=== PATIENT | female | born 1950 | race Caucasian/White ===

== ENCOUNTER → 2016-07-23 | Outpatient (CLI) | payer OTHER | LOC: BMCIMAGING 14:58 | DX: Z12.31 Encounter for screening mammogram for malignant neoplasm of breast (principal) | CPT/HCPCS: G0202 ==

== ENCOUNTER → 2017-08-15 | Outpatient (CLI) | payer OTHER | LOC: BMCIMAGING 13:38 | PROVIDERS: ATTEND Internal Medicine | DX: D25.1 Intramural leiomyoma of uterus (principal); D25.2 Subserosal leiomyoma of uterus; N83.291 Other ovarian cyst, right side ==

== ENCOUNTER → 2017-09-15 | Outpatient (CLI) | payer OTHER | LOC: BMCIMAGING 15:45 | PROVIDERS: ATTEND Family Medicine | DX: S82.65XA Nondisplaced fracture of lateral malleolus of left fibula, initial encounter for closed fracture (principal); M25.872 Other specified joint disorders, left ankle and foot ==

== ENCOUNTER → 2017-10-13 | Outpatient (CLI) | payer OTHER | LOC: BMCIMAGING 14:00 | PROVIDERS: ATTEND Podiatrist Foot & Ankle Surgery | DX: S92.325D Nondisplaced fracture of second metatarsal bone, left foot, subsequent encounter for fracture with routine healing (principal); S82.832D Other fracture of upper and lower end of left fibula, subsequent encounter for closed fracture with routine healing ==

== ENCOUNTER → 2017-11-01 | Outpatient (CLI) | payer OTHER | LOC: BMCIMAGING 12:51 | PROVIDERS: ATTEND Podiatrist Foot & Ankle Surgery | DX: S82.65XD Nondisplaced fracture of lateral malleolus of left fibula, subsequent encounter for closed fracture with routine healing (principal); S92.325D Nondisplaced fracture of second metatarsal bone, left foot, subsequent encounter for fracture with routine healing; S92.345D Nondisplaced fracture of fourth metatarsal bone, left foot, subsequent encounter for fracture with routine healing ==

== ENCOUNTER → 2018-04-18 | Outpatient (CLI) | payer OTHER | LOC: BMCIMAGING 12:15 | PROVIDERS: ATTEND Family Medicine | DX: S42.032A Displaced fracture of lateral end of left clavicle, initial encounter for closed fracture (principal); S69.92XA Unspecified injury of left wrist, hand and finger(s), initial encounter ==

== ENCOUNTER → 2018-04-28 | Outpatient (CLI) | payer OTHER | LOC: BMCIMAGING 16:01 | PROVIDERS: ATTEND Physician Assistant | DX: S42.002D Fracture of unspecified part of left clavicle, subsequent encounter for fracture with routine healing (principal) ==

== ENCOUNTER → 2018-05-12 | Outpatient (CLI) | payer OTHER | LOC: BMCIMAGING 10:47 | PROVIDERS: ATTEND Physician Assistant | DX: S42.032D Displaced fracture of lateral end of left clavicle, subsequent encounter for fracture with routine healing (principal) ==

== ENCOUNTER 2018-05-23 15:20 | Observation (INO) | payer OTHER ==
[2018-05-23] MEDS: HYDROmorphONE/DILAUDID 2 MG/ML INJ IVP PRN ×6 (09:45→20:22)
[2018-05-23] MEDS ORDERED: ceFAZolin 2 GM/DEXTROSE 100 ML IV ONE (15:45)
[2018-05-23] MEDS ORDERED: LR 1,000 ML IV ONE (15:46)
[2018-05-23] MEDS ORDERED: BUPIVACAINE/EPI 0.5% 30 ML SDV ONE (16:17)
--- NOTE | 2018-05-23 16:26 | PDHPUP ---
History & Physical Update H&P update statement: This history and physical update is based on an assessment of the patient which was completed after admission or registration (within 24 hours), but prior to the surgery/procedure. H&P update: H&P reviewed & patient examined, no change in patient's condition since H&P completed
--- NOTE | 2018-05-23 16:41 | PDANEPAE ---
ANE History of Present Illness here for clavicle fracture ANE Past Medical History - Cardiovascular History Hx Hypertension: No Hx Arrhythmias: No Hx Chest Pain: No Hx Coronary Artery / Peripheral Vascular Disease: No Hx CHF / Valvular Disease: No Hx Palpitations: No - Pulmonary History Hx COPD: No Hx Asthma/Reactive Airway Disease: No Hx Recent Upper Respiratory Infection: No Hx Oxygen in Use at Home: No Hx Sleep Apnea: No - Neurologic History Hx Cerebrovascular Accident: No Hx Seizures: No Hx Dementia: No - Endocrine History Hx Diabetes: No - Renal History Hx Renal Disorders: No - Liver History Hx Hepatic Disorders: No - Neurological & Psychiatric Hx Neurological / Psychiatric History Comment: Insomnia, depression - Cancer History Hx Cancer: No - Congenital Disorder History Hx Congenital Disorders: No - GI History Hx Gastrointestinal Disorders: No - Surgical History Prior Surgeries: hysterectomy, knee surgery ANE Review of Systems Review of Systems: - Exercise capacity METS (RN): 4 METS ANE Patient History - Allergies Allergies/Adverse Reactions: ibuprofen Allergy (Mild, Verified 05/23/18 16:06) Other-Enter Comments Penicillins Allergy (Mild, Verified 05/23/18 16:06) Hives - Home Medications Home Medications: ALPRAZolam [Xanax] 0 mg PO 08/15/12 [Last Taken 1 Day Ago ~05/22/18] Zolpidem Tartrate [Ambien 5MG (RX)] 0 mg PO HS 08/15/12 [Last Taken Unknown] Sertraline HCl 05/23/18 [Last Taken 10/30/17] Simvastatin 20 mg HS 05/23/18 [Last Taken 1 Day Ago ~05/22/18] Vitamin D3 2,000 units 05/23/18 [Last Taken 1 Day Ago ~05/22/18] buPROPion SR [Wellbutrin 150mg SR (*)] BID 05/23/18 [Last Taken 1 Day Ago ~05/22] cycloSPORINE 0.05% [Restasis Opht Drops(*)] 1 drop Q12 05/23/18 [Last Taken ] traZODone [traZODONE 100MG (*)] 100 mg PO HS 05/23/18 [Last Taken 1 Day Ago ~] - NPO status NPO Since - Liquids (Date): 05/23/18 NPO Since - Liquids (Time): 13:00 NPO Since - Solids (Date): 05/23/18 NPO Since - Solids (Time): 09:00 - Smoking Hx Smoking Status: Former smoker - Family Anes Hx Family Hx Anesthesia Complications: NA ANE Labs/Vital Signs - Vital Signs Blood Pressure: 144/85 Heart Rate: 79 Respiratory Rate: 14 O2 Sat (%): 96 Height: 166.37 cm Weight: 62.596 kg
[2018-05-23] MEDS ORDERED: oxyCODONE IR 5 MG TAB PO PRN (16:47)
[2018-05-23] MEDS ORDERED: MIDAZOLAM 2 MG/2 ML VIAL IVP ONE (16:47)
[2018-05-23] MEDS ORDERED: NALOXONE HCL 0.4 MG/ML INJ IVP PRN (16:47)
[2018-05-23] MEDS ORDERED: LR 500 ML IV PRN (16:47)
[2018-05-23] MEDS ORDERED: NS 500 ML IV PRN (16:47)
[2018-05-23] MEDS ORDERED: PROMETHAZINE HCL 25 MG/ML INJ IVP PRN ×2 (16:47→19:40)
[2018-05-23] MEDS ORDERED: HYDROCODONE/APAP 5/325 TAB PO PRN (16:47)
[2018-05-23] MEDS ORDERED: ONDANSETRON 4 MG/2 ML VIAL IVP PRN ×2 (16:47→19:40)
[2018-05-23] MEDS ORDERED: MIDAZOLAM 2 MG/2 ML VIAL ONE (16:48)
[2018-05-23] MEDS ORDERED: PROPOFOL/EMULSION 500 MG/50 ML BOTTLE IV ONE (16:53)
[2018-05-23] MEDS ORDERED: fentaNYL 250 MCG/5 ML INJ ONE (16:53)
[2018-05-23] MEDS ORDERED: DEXAMETHASONE 4 MG/ML VIAL ONE (17:18)
[2018-05-23] MEDS ORDERED: ONDANSETRON 4 MG/2 ML VIAL ONE (17:19)
[2018-05-23] MEDS ORDERED: HYDROmorphONE/DILAUDID 2 MG/ML INJ ONE (19:33)
--- NOTE | 2018-05-23 19:34 | POSTANESTH ---
Post Anesthetic Evaluation Cardiovascular Status: Normal, Stable Respiratory Status: Normal, Stable Level of Consciousness/Mental Status: Can Participate in Eval Pain Control: Adequate, Prn Tx Ordered Nausea/Vomiting Control: Adequate, Prn Tx Ordered Complications Possibly Related to Anesthesia: None Noted
[2018-05-23] MEDS ORDERED: diphenhydrAMINE 25 MG CAP PO PRN (19:40)
[2018-05-23] MEDS ORDERED: ONDANSETRON DISINTEGRATING 4 MG TAB PO PRN (19:40)
[2018-05-23] MEDS ORDERED: traZODone 100 MG TAB PO PRN (19:48)
[2018-05-23] MEDS ORDERED: ZOLPIDEM TARTRATE 5 MG TAB PO PRN (19:48)
[2018-05-23] MEDS ORDERED: fentaNYL 100 MCG/2 ML INJ ONE (20:10)
[2018-05-23] MEDS: fentaNYL 100 MCG/2 ML INJ IVP PRN ×2 (20:17→20:23)
[2018-05-23] MEDS: cycloSPORINE 0.05% 30 DROPERETTE/BOX EACHEYE SCH (22:51)
[2018-05-24] MEDS: ACETAMINOPHEN 325 MG TAB PO SCH ×2 (00:01→05:48)
[2018-05-24] MEDS: oxyCODONE IR 5 MG TAB PO PRN ×4 (00:01→10:39)
[2018-05-24] MEDS: ceFAZolin 2 GM/DEXTROSE 100 ML IV SCH ×2 (01:01→08:13)
--- NOTE | 2018-05-24 07:49 | GOP ---
DATE OF OPERATION: SURGEON: Roger Wallis MD ANESTHESIA: General. PREOPERATIVE DIAGNOSIS: Left distal clavicle fracture. POSTOPERATIVE DIAGNOSIS: Left distal clavicle fracture. PROCEDURE PERFORMED: Open reduction and internal fixation of a left distal clavicle fracture. FINDINGS: ESTIMATED BLOOD LOSS: 20 cc. INDICATIONS: This is a 67-year-old female who sustained a fracture of her left clavicle in [facility]. She was initially treated nonoperatively. She did not desire to perform a surgery at the time. O vicenta time, x-rays showed worsening superior displacement of the medial shaft at the left x-ray. The fr acture was very displaced, and it was tenting the skin. This was causing her worsening pain and dysfu nction. With the amount of displacement, an ORIF was indicated. She was seen by Sil[facility] who consulted me, and we scheduled the patient for surgery. I met the patient today. We discuss ed the risks and benefits of surgery. The risks include pain, bleeding, infection, damage to surround ing structures, delayed union, nonunion, the need for further surgery, including implant removal, wea kness, stiffness, and wound healing complications. She understood these risks, and she wished to proc eed. DESCRIPTION OF PROCEDURE: The patient was seen in the preoperative holding area. She was given the o pportunity to ask any questions. All questions were answered. Consent was signed. The surgical site w as marked. She was then transferred to the operative suite, and great care was taken to transfer the patient from the [facility] to the operating room table. A time-out was called, including the surgical an d anesthesia teams, confirming the surgical site and the procedure to be performed. 2 g of Ancef was given prior to incision. She was very carefully placed in the beach-chair position after induction of anesthesia. In the beach-chair position, great care was taken to ensure that all bony prominences we re padded, that her head was well padded, that eyes were well padded, and her head was w ell secured. She was then prepped and draped in the usual sterile fashion for a clavicle ORIF. I tito ed out my incision. She had a fragment that was tenting the skin. I marked the skin incision over the AC joint. I first dissected down through the skin. I visualized the medial shaft to the left periost eum and then the deltotrapezial fascia in 1 large layer. I then exposed that lateral spik e and lifted it off. There was abundant scar tissue. This was over a month old. I excised a lot of th e scar with electrocautery and a rongeur, and then the inferior surface of the clavicle, I took off t he scar with a rongeur until there was healthy bleeding bone. I then elevated the periosteum and part of the AC joint capsule flaps, and I visualize this lateral fragment. This was a very sm all fragment. It was quite . I then again excised the scar and then until I reached bleedi ng bone. There was healthy bleeding bone. I mobilized this fragment. I mobilized the other fragment. I then performed provisional reduction. I then chose the plate and placed the plate over the bone, an d then I the plate with the fragment fracture reduced. I used the ball-tipped K-wires to hold the plate down to the bone on both sides, and then I used 2 other K-wires in the lateral fragmen t to hold it in place. I then placed a screw medially into the shaft to hold it down posi tion. I then drilled for the coracoid button. I did this under fluoroscopic guidance, drilled through the 2 cortices of the clavicle and then through to the course of the coracoid base. Then, I passed t he button on the drying tunnel operator through the clavicle and the coracoid base and pulled up on the drying tunnel operator to flip the button. Once the button flipped, I then tightened down the button to the fit in to the plate hole, and I tightened down to further help reduce. The purpose of this was also to repai r the CC ligaments. After this was done, I then placed another cortical screw to the shaft, and then I placed the locking screws into the lateral fragment, and then I placed 1 more locking screw at the end of the plate. I then irrigated copiously with sterile saline. I placed the final x-rays. I was ve ry happy with the final x-rays. Then, I placed 1 cc of bone graft putty into the fracture site. Then, I closed the deltotrapezial fascia, the capsule, and the periosteum with an 0-Vicryl, and then a 3-0 Monocryl and then a 4-0 Monocryl running subcuticular stitch were used. Steri-Strips were applied. S terile dressing was applied. The patient was placed in a sling, awakened from general anesthesia in s table condition, and taken to the PACU in stable condition. IMPLANTS USED: Arthrex distal clavicle plating system, 5-hole shaft, with the Knotless Distal Clavic le Button TightRope. POSTOPERATIVE CONDITION: Stable. POSTOPERATIVE PLAN: The patient will follow up in the clinic in 10 to 14 days. We will follow radiog raphically for healing. /[id number]/MODL
[2018-05-24 07:56] VITALS: BP 141/72
[2018-05-24] MEDS: cycloSPORINE 0.05% 30 DROPERETTE/BOX EACHEYE SCH (08:16)
[2018-05-24] MEDS ORDERED: buPROPion SR 150 MG TAB PO SCH (09:00)
[2018-05-24] MEDS ORDERED: FAMOTIDINE 20 MG TAB PO SCH (09:00)
[2018-05-24] MEDS ORDERED: SERTRALINE HCL 50 MG TAB PO SCH ×2 (09:00→21:00)
--- NOTE | 2018-05-24 11:13 | ASMTLACE ---
KRAIG Length of stay for Answers: 2 days current admission Acuity / Level of Answers: No Care: Did the patient have an inpatient admission? # of Emergency department Answers: 0 visits in the last 6 months Social determinants Answers: Mental health diagnosis (anxiety, depression, pers onality disorders, etc.) Score: 5 Date Signed: 05/24/2018 11:12 AM Electronically Signed By:KAYDEN Mcguire
--- NOTE | 2018-05-24 16:24 | GPROG ---
DATE OF SERVICE: 05/23/2018 SUBJECTIVE: Patient feels well this morning. The anesthetic wore off last night and she is having s ome increased pain. However, this is controlled with p.o. pain medication. OBJECTIVE: VITALS: Stable. EXTREMITIES: Left shoulder, the dressing is clean, dry, and intact. S he is neurovascularly intact left upper extremity involving elbow, hand, wrist, and fingers. ASSESSMENT AND PLAN: Postoperative day #1 status post left clavicle open reduction internal fixation , admitted for pain control and observation. She is doing well today and is stable for discharge dorothy looney /[id number]/MODL
--- NOTE | 2018-05-24 19:05 | GDS ---
OPERATIONS AND PROCEDURES PERFORMED DURING HOSPITAL STAY: Left clavicle ORIF. HOSPITAL COURSE: The patient is a 67-year-old female who was admitted postoperatively for pain contr ol and observation after an uncomplicated left clavicle ORIF. Her postoperative course was without a ny complications. I saw her on the morning of May 23. At that time, some of the anesthetic had worn off and she was complaining of some pain. However, it was controlled with p.o. pain medication. She was tolerating p.o. Her vitals were stable and she was thus deemed stable for discharge home. On May 23, she went home. DISCHARGE DIAGNOSIS: Left clavicle fracture, status post open reduction internal fixation. POST DISCHARGE PLAN: The patient will follow up with myself or Dr. Silvia Engle in 10 to 14 days. /[id number]/MODL
[2018-05-24] MEDS ORDERED: ATORVASTATIN CALCIUM 10 MG TAB PO SCH (21:00)
== END 2018-05-24 12:01 | disposition home or self-care (01) ==
LOC: FSGY 15:20 → F3N 19:40
PROVIDERS: ADMIT Orthopaedic Surgery Hand Surgery; ATTEND Orthopaedic Surgery Hand Surgery
PROC: 0PSB04Z Reposition Left Clavicle with Internal Fixation Device, Open Approach (ICD-10-PCS; principal; 2018-05-23 16:30)
PROC: BP15ZZZ Fluoroscopy of Left Clavicle (ICD-10-PCS; principal; 2018-05-23 16:30)
DX: S42.032A Displaced fracture of lateral end of left clavicle, initial encounter for closed fracture (principal); G89.18 Other acute postprocedural pain; Z87.891 Personal history of nicotine dependence; Z88.0 Allergy status to penicillin
CPT/HCPCS: 23515; 97161; 97165; C1713; J0690; J1100; J1170; J2250; J2405; J2704; J3010

== ENCOUNTER → 2018-06-06 | Outpatient (CLI) | payer OTHER | LOC: BMCIMAGING 13:25 | PROVIDERS: ATTEND Physician Assistant | DX: S42.032D Displaced fracture of lateral end of left clavicle, subsequent encounter for fracture with routine healing (principal) ==

== ENCOUNTER → 2018-07-04 | Outpatient (CLI) | payer OTHER | LOC: BMCIMAGING 14:19 | PROVIDERS: ATTEND Orthopaedic Surgery Hand Surgery | DX: S42.032D Displaced fracture of lateral end of left clavicle, subsequent encounter for fracture with routine healing (principal) ==

== ENCOUNTER → 2018-07-28 | Outpatient (CLI) | payer OTHER | LOC: BMCIMAGING 14:04 | PROVIDERS: ATTEND Orthopaedic Surgery Hand Surgery | DX: S42.032D Displaced fracture of lateral end of left clavicle, subsequent encounter for fracture with routine healing (principal) ==

== ENCOUNTER 2018-08-22 09:54 | Inpatient (IN) | payer OTHER ==
[2018-08-22] MEDS ORDERED: BUPIVACAINE/EPI 0.5% 30 ML SDV ONE ×2 (13:43→14:57)
[2018-08-22] MEDS ORDERED: VANCOMYCIN 1 GM VIAL ONE ×2 (13:43→15:18)
[2018-08-22] MEDS ORDERED: ceFAZolin 2 GM/DEXTROSE 100 ML IV ONE (13:47)
[2018-08-22] MEDS ORDERED: LR 1,000 ML IV ONE (14:09)
--- NOTE | 2018-08-22 14:23 | POSTANESTH ---
Post Anesthetic Evaluation Cardiovascular Status: Normal, Stable Respiratory Status: Normal, Stable Level of Consciousness/Mental Status: Can Participate in Eval, Mildly Sleepy, Arousable Pain Control: Adequate, Prn Tx Ordered Nausea/Vomiting Control: Adequate, Prn Tx Ordered Complications Possibly Related to Anesthesia: None Noted
--- NOTE | 2018-08-22 14:36 | PDANEPAE ---
ANE History of Present Illness 67 yo female with retained L clavicle hardware for removal/revision of ORIF. ANE Past Medical History - Cardiovascular History Hx Hypertension: No Hx Arrhythmias: No Hx Chest Pain: No Hx Coronary Artery / Peripheral Vascular Disease: No Hx CHF / Valvular Disease: No Hx Palpitations: No Cardiovascular History Comment: Hyperlipidemia. - Pulmonary History Hx COPD: No Hx Asthma/Reactive Airway Disease: No Hx Recent Upper Respiratory Infection: No Hx Oxygen in Use at Home: No Hx Sleep Apnea: No Sleep Apnea Screening Result - Last Documented: Negative - Neurologic History Hx Cerebrovascular Accident: No Hx Seizures: No Hx Dementia: No - Endocrine History Hx Diabetes: No Hypothyroid: No Hyperthyroid: No Obesity: no - Renal History Hx Renal Disorders: No - Liver History Hx Hepatic Disorders: No - Neurological & Psychiatric Hx Neurological / Psychiatric History Comment: Anxiety d/o with panic attack. Insomnia. Depression. Recovered ETOH since 1980 - Cancer History Hx Cancer: No - Congenital Disorder History Hx Congenital Disorders: No - GI History Hx Gastrointestinal Disorders: No - Other Health History Other Health History: R ovarian mass, benign. L ankle and foot fx, no surgery. Osteopenia. Uterine fibroids - Chronic Pain History Chronic Pain: Yes - Surgical History Prior Surgeries: L clavicle ORIF 05/23/18. Lap BSO compliated by post-op infection with woulnd vac 11/29/2017. Facelift 08/2016. Colposcopy x2, 2007. R knee MCL repair 2007. Bilateral tubal ligation 1986. Breast augmentation 1984 ANE Review of Systems Review of Systems: - Exercise capacity METS (RN): 4 METS - Systems Constitutional: Reports: no symptoms EENMT: Reports: no symptoms Cardiac: Reports: no symptoms Respiratory: Reports: cough (dry cough for 2 days, ending about 4 days ago) ANE Patient History - Allergies Allergies/Adverse Reactions: ibuprofen Allergy (Mild, Verified 05/23/18 16:06) Other-Enter Comments Penicillins Allergy (Mild, Verified 05/23/18 16:06) Hives - Home Medications Home Medications: Sertraline HCl [Zoloft 50mg (*)] 50 mg PO HS 05/23/18 [Last Taken 08/15/18] Simvastatin [Zocor] 20 mg PO HS #0 05/23/18 [Last Taken 08/15/18] buPROPion SR [Wellbutrin 150mg SR (*)] 150 mg PO BID 05/23/18 [Last Taken ] cycloSPORINE 0.05% [Restasis Opht Drops(*)] 1 drop EACHEYE Q12 05/23/18 [Last Taken 08/22/18] traZODone [traZODone 150MG (*)] 150 mg PO HS 05/23/18 [Last Taken 08/21/18] Acetamn/Diphenhydramine 500/25 [Tylenol PM (*)] 1 each PO HS 08/10/18 [Last Taken Unknown] Cholecalciferol Vit D3 [Vitamin D3 (*)] 1,000 units PO DAILY 08/10/18 [Last Taken Unknown] Herbals/Supplements -Info Only 1 ea PO DAILY 08/10/18 [Last Taken 08/15/18] Hydrocodone/APAP 5/325 [Whiting 5/325 (*)] 1 tab PO DAILY PRN 08/10/18 [Last Taken 08/20/18] - NPO status NPO Since - Liquids (Date): 08/22/18 NPO Since - Liquids (Time): 11:00 NPO Since - Solids (Date): 08/21/18 NPO Since - Solids (Time): 23:00 - Anes Hx Anes Hx: no prior problems - Smoking Hx Smoking Status: Former smoker Marijuana use: No - Alcohol Use Alcohol Use: Rarely - Family Anes Hx Family Anes Hx: neg - N/A Family Hx Anesthesia Complications: None. ANE Labs/Vital Signs - Vital Signs Blood Pressure: 151/88 Heart Rate: 73 Respiratory Rate: 16 O2 Sat (%): 96 Height: 167.64 cm Weight: 63.503 kg ANE Physical Exam - Airway Neck exam: FROM Mallampati Score: Class 2 Mouth exam: normal dental/mouth exam - Pulmonary Pulmonary: clear to auscultation - Cardiovascular Cardiovascular: regular rate and rhythym - ASA Status ASA Status: III ANE Anesthesia Plan Anesthesia Plan: GA w LMA Regional Anesthesia: interscalene BP NB
[2018-08-22] MEDS ORDERED: fentaNYL 100 MCG/2 ML INJ ONE ×3 (14:39→19:34)
[2018-08-22] MEDS ORDERED: ROPIVACAINE HCL 150 MG/30 ML INJ ONE (14:44)
[2018-08-22] MEDS ORDERED: LIDOCAINE 2% 2 ML INJ ONE (14:58)
[2018-08-22] MEDS ORDERED: PROPOFOL/EMULSION 500 MG/50 ML BOTTLE IV ONE ×2 (14:58→16:48)
[2018-08-22] MEDS ORDERED: DEXAMETHASONE 4 MG/ML VIAL ONE (14:58)
[2018-08-22] MEDS ORDERED: VANCOMYCIN 500 MG/10 ML VIAL IV ONE (15:43)
[2018-08-22] MEDS ORDERED: ONDANSETRON 4 MG/2 ML VIAL ONE (18:23)
[2018-08-22] MEDS ORDERED: ALBUTEROL 3 ML DEYVIAL IH PRN (18:26)
[2018-08-22] MEDS ORDERED: oxyCODONE IR 5 MG TAB PO PRN (18:26)
[2018-08-22] MEDS ORDERED: fentaNYL 100 MCG/2 ML INJ IVP PRN (18:26)
[2018-08-22] MEDS ORDERED: LR 500 ML IV PRN (18:26)
[2018-08-22] MEDS ORDERED: PROMETHAZINE HCL 25 MG/ML INJ IVP PRN ×2 (18:26→19:04)
[2018-08-22] MEDS ORDERED: ACETAMINOPHEN 500 MG TAB PO PRN (18:26)
[2018-08-22] MEDS ORDERED: NALOXONE HCL 0.4 MG/ML INJ IVP PRN (18:26)
[2018-08-22] MEDS ORDERED: DIAZEPAM 10 MG/2 ML SYR IVP PRN (18:26)
[2018-08-22] MEDS ORDERED: HYDROmorphONE/DILAUDID 1 MG/ML INJ IVP PRN ×2 (18:26→19:04)
[2018-08-22] MEDS ORDERED: ONDANSETRON 4 MG/2 ML VIAL IVP PRN (19:04)
[2018-08-22] MEDS ORDERED: ONDANSETRON DISINTEGRATING 4 MG TAB PO PRN (19:04)
[2018-08-22] MEDS ORDERED: NS 1,000 ML IV SCH (19:15)
[2018-08-22] MEDS ORDERED: LR 1,000 ML IV SCH (19:30)
[2018-08-22] MEDS: SERTRALINE HCL 50 MG TAB PO SCH (20:32)
[2018-08-22] MEDS: oxyCODONE IR 5 MG TAB PO PRN (20:32)
[2018-08-22] MEDS: buPROPion SR 150 MG TAB PO SCH (20:33)
[2018-08-22] MEDS: cycloSPORINE 0.05% 30 DROPERETTE/BOX EACHEYE SCH (23:13)
[2018-08-22] MEDS: ACETAMINOPHEN 500 MG TAB PO SCH (23:15)
[2018-08-23] MEDS: oxyCODONE IR 5 MG TAB PO PRN ×5 (00:57→17:27)
[2018-08-23] MEDS: ACETAMINOPHEN 500 MG TAB PO SCH ×2 (05:08→13:16)
[2018-08-23] MEDS: oxyCODONE IR 15 MG TAB PO PRN ×2 (06:15→21:32)
--- NOTE | 2018-08-23 07:44 | SOAPPROG ---
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 Still having some pain. Cannot lift the arm. Resizer Operator returning Objective: Vital Signs Temp Pulse Resp BP Pulse Ox 36.9 C 67 17 120/65 94 08/23/18 07:11 08/23/18 07:11 08/23/18 07:11 08/23/18 07:11 08/23/18 07:11 Microbiology 08/22/18 17:34 Gram Stain - Final Chest - Bone 08/22/18 16:18 Gram Stain - Final Chest - Tissue 08/22/18 16:10 Gram Stain - Final Chest - Eswab 08/22/18 16:10 Gram Stain - Final Chest - Eswab Laboratory Results 08/23/18 04:27 08/22/18 08/23/18 08/24/18 05:59 05:59 05:59 Intake Total 1445 Output Total 350 Balance 1095 LUE -dressing c/d/i -intact stone driller, wrist flexion/extension -SILT in hand - Time Spent With Patient Time Spent With Patient: 15 m ICD10 Worksheet Patient Problems: Problems Problem Status Onset Nonunion of clavicle fracture Acute - ICD10 Problem Qualifiers (1) Nonunion of clavicle fracture Qualifiers: Clavicle location: lateral end Fracture type: closed Fracture alignment: displaced Laterality: left Qualified Code(s): S42.032K - Displaced fracture of lateral end of left clavicle, subsequent encounter for fracture with nonunion
[2018-08-23] MEDS: CHOLECALCIFEROL VIT D3 1,000 UNITS TAB PO SCH (09:08)
[2018-08-23] MEDS: buPROPion SR 150 MG TAB PO SCH ×3 (09:08→23:21)
[2018-08-23] MEDS: cycloSPORINE 0.05% 30 DROPERETTE/BOX EACHEYE SCH (09:10)
--- NOTE | 2018-08-23 10:19 | PDMN ---
Medical Necessity Medical necessity: Pt meets IP criteria per MD & MCG SG-MS Musculoskeletal Surgery or Procedure; est los >2 mn s/p L clavicle hardware removal, debridement & revision ORIF for presumed infected nonunion; requiring IV abx, ID consult, pain management & therapies; per progress note & order 08/22/18
--- NOTE | 2018-08-23 11:54 | ASMTCMCOM ---
CM Note CM Note Notes: Pt had clavicle revision, debridement and hardware removal. Pt resides alone. OT rec home, PT rec home/outpatient. ID to consult and cultures pending. Pt currently on IV ceftriaxone. CM to follow. D/c plan: Dependent on ID recs Date Signed: 08/23/2018 11:54 AM Electronically Signed By:KAYDEN Mcguire
[2018-08-23] MEDS ORDERED: ALTEPLASE 2 MG VIAL IVP PRN (13:51)
--- NOTE | 2018-08-23 17:00 | ASMTCMCOM ---
CM Note CM Note Notes: Pt will need to d/c on IV antibiotics, referral sent to [facility] they ran benefits for 2gm ceftriaxone daily. Pt responsibility is approx $517/week for six weeks. Pt reports she does not have daily transportation to get to an infusion center. Pt is upset the bello for home IV antibiotics is so costly and reports she likely will pay for it because she is in so much pain and wants to/needs to be home. Pt is provided senior blue book for transportation resources, she reports they are all "a hassle." Pt states she gets to medical appointments now with rides from friends and does not have anyone to help on a daily basis. Cristine with [facility] will visit with pt tomorrow and pt looks forward to more information from [facility] about insurance coverage. Pt is provided a print out of the expected cost for home IV antibiotics. Pt is dealing with chronic pain and verbalizes being frustrated/stressed with months of ongoing medical issues. Pt reports she has a limited support system. Pt interested in [employer] Whe[employer] referral. CM to follow. D/c plan of care: Home IV antibiotics most likely Date Signed: 08/23/2018 04:59 PM Electronically Signed By:KAYDEN Mcguire
--- NOTE | 2018-08-23 17:41 | PDIAF ---
- Diagnosis Diagnosis: Osteomyelitis left clavicle Code Status: Full Code - Medication Management Optical Scientist Antibiotics: Ceftriaxone 2 g IV daily Optical Scientist Antibiotic Stop Date: 10/04/18 Discharge Medications: electronically signed and located in the Home Medication List. PICC Care - Routine: Yes - Orders Services needed: Home Care, Registered Nurse Home Care Face to Face: I certify that this patient was under my care and that I had the required [id number] encounter meeting the encounter requirements on the discharge day. My findings support the fact that the patient is homebound as defined in Home Care Face to Face Continued: CMS Chapter 7 Medicare Benefits Manual 30.1.1 , The condition of the patient is such that there exists a normal inability to leave home and consequently, leaving home would require a considerable and taxing effort. - Labs/Radiology CBC w/diff Date: 08/28/18 (Weekly Tuesday) CMP Date: 08/28/18 (Weekly Tuesday) CRP Date: 08/28/18 (Weekly Tuesday) Call or Fax Lab and Imaging Results to: Andressa Gaines MD [facility] at fax [phone] - Follow Up Care Current Providers and Referrals: Elizabeth Otto MD [Primary Care Provider] - Andressa Gaines MD [Medical Doctor] - follow up in 10 days
--- NOTE | 2018-08-23 18:08 | GCON ---
[f rep st] CONSULTATION INFECTIOUS DISEASE CONSULTATION. DATE OF CONSULTATION: 08/23/2018 REQUESTING PHYSICIAN: Roger Wallis REASON FOR CONSULTATION: Osteomyelitis of the left clavicle. HISTORY OF PRESENT ILLNESS: This is a 67-year-old woman whose current problems date back to the 23 of May when she fractured her left clavicle after a fall in the garage, which required open redu ction, internal fixation. She had persistent pain and limited range of motion of her left shoulder a nd imaging demonstrated no fusion and corresponding labs showed a slightly elevated CRP, therefore th ere was concern for infection. The patient returned to the OR 08/22/2018, in which cloudy fluid was identified intraoperatively, debrided, hardware was replaced and cultures were taken. ID is asked to consult for ongoing antibiotic management. Leading up to the surgery approximately 2 weeks, patient described malaise, lethargy, and some fever, chills the last 2 weeks. She has not been on antibioti cs recently. PAST MEDICAL HISTORY: She had a hysterectomy in November of 2017, complicated by a wound infection req uiring wound VAC. She underwent a hysterectomy for a cyst to rule out cancer. Also, she has a histo ry of depression and a fractured ankle. ALLERGIES: Penicillin was removed as an allergy as it occurred in 6th grade and had a nonsignificant rash. SOCIAL HISTORY: Patient does drink alcohol. Quit tobacco 20 years ago. 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 Moved to [place] in 1966 from [place] to attend college. She lives alone and has minimal ability for transportation. FAMILY HISTORY: Positive for kidney disease. Her brother has had a renal transplant. MEDICATIONS: Wellbutrin 150 twice daily, ceftriaxone 2 g IV daily, vitamin D, Zoloft 50 mg at bedtim e, and trazodone 150 mg p.o. at bedtime. REVIEW OF SYSTEMS: A complete 10-point review of systems was performed and is negative except as men tioned in the HPI. PHYSICAL EXAM: VITAL SIGNS: BP 148/86, HR 74, RR 17, saturation 97% on room air, temperature 36.9. She has been afebrile throughout her hospital course. GENERAL: This is a mildly distressed but non toxic woman sitting up in bed. Distress is due to pain of her left clavicle. HEENT: No conjunctiva l lesions. Oropharynx: Good dentition. Moist mucous membranes. NECK: Supple. CARDIOVASCULAR: S he had some irregularity. No murmur. CHEST: Clear to auscultation bilaterally. ABDOMEN: Soft, no ntender. Bowel sounds are present. She had a dressing in place over her left chest wall and shoulde r. NEUROLOGICAL: She was alert and oriented x4. Moving all 4 extremities equally. LABORATORY: White count 7.1, hematocrit 35, platelets of 185, CRP 24. No pertinent imaging. 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 Cultures are pending. Suspect the acne. Will start IV ceftriaxon e 2 g IV daily. Reviewed the risks and benefits of IV antibiotics with the patient at bedside, as we ll as PICC line placement. Patient will work on with case management the modality of administration of IV antibiotics at home. Reviewed the risks and benefits of Ceftriaxone at the bedside including C difficile. Thanks for this consultation. We will continue to see the patient on a daily basis. /[id number]/MODL
--- NOTE | 2018-08-23 19:53 | GOP ---
[f rep st] OPERATIVE REPORT DATE OF OPERATION: 08/22/2018 SURGEON: Roger Wallis MD NEUROPHYSIOLOGY TECH: SHARIF Stinson was the metal moulder's assistant for this case. A metal moulder's assistant was medically nec essary for retraction and the safe and successful completion of this case. ANESTHESIA: General and block. 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 PROCEDURE PERFORMED: FINDINGS: INDICATIONS: The patient is a 67-year-old female, well known to me. She underwent ORIF of her dista l clavicle fracture about 3 months ago by me. I had then seen her for followup in clinic. At her ms st followup, the patient was complaining of continued pain in the clavicle. She also noticed a recur ring red rash over the incision. X-rays showed no progression in healing and what looked like an est ablished nonunion. A CRP was drawn, which was elevated. All these factors point to an infected nonu nion as the very likely cause of the nonunion. I discussed this case with several colleagues who are trauma and shoulder specialists. With the evidence presented, they all still felt that removal of t he initial hardware and I and D was recommended. removal of hardware. We discussed DICTATION ENDS HERE DESCRIPTION OF PROCEDURE: OPERATIONS PERFORMED: 1. Left distal clavicle deep hardware removal. 2. Left clavicle irrigation and debridement for presumed infected nonunion of hardware bone nonunion site and any other remaining contaminated soft tissue. 3. Revision clavicle surgical fixation for nonunion. IMPLANTS USED: Synthes hook plate distal clavicle plate. /[id number]/MODL
[2018-08-23] MEDS: SERTRALINE HCL 50 MG TAB PO SCH (21:27)
[2018-08-24] MEDS: oxyCODONE IR 15 MG TAB PO PRN ×5 (02:10→20:01)
[2018-08-24 02:35] LABS: PLATELET COUNT 159 10^3/uL (150-400)
[2018-08-24] MEDS: ACETAMINOPHEN 500 MG TAB PO SCH ×4 (02:41→23:25)
--- NOTE | 2018-08-24 05:49 | GOP ---
[f rep st] OPERATIVE REPORT DATE OF OPERATION: 08/22/2018 SURGEON: Roger Wallis MD SUPERVISOR QUALITY CONTROL: Stephenie OLGUIN was the recycling assistant for this case. A recycling assistant was medically necessary for retraction and the safe and successful completion of this case. ANESTHESIA: General with a block. 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 PROCEDURE PERFORMED: 1. Left distal clavicle deep hardware removal. 2. Left clavicle irrigation and debridement for presumed infected nonunion of hardware with left clavicle irrigation and debridement of bone and any remaining contaminated soft tissue at presumed nonunion site. 3. Revision clavicle surgical fixation for nonunion. FINDINGS: ESTIMATED BLOOD LOSS: 50 cc. DESCRIPTION OF PROCEDURE: The patient was seen in the preop holding area. She was given opportunity to ask more questions. All her questions were answered. Consent was signed. Surgical site was marked. A block was performed by the anesthesia team. She was transferred to the operative suite. In the operative suite she was carefully transferred from the [facility] to the operating table. She was carefully placed in the beach chair position. Great care was taken to ensure that all bony prominences were well padded in the beach chair position, that her head were secured and well padded, that her eyes were well padded. The left upper extremity was prepped and draped in the usual sterile fashion. Antibiotics were withheld until cultures were then taken and then 2 g of Ancef were given. After prepping and draping the left upper extremity, I carefully made incision over prior incision extending it both distally and proximally. I raised thick skin flaps down to the level of the fascia more medially. I did identify a supraclavicular nerve which was preserved. I then identified the fascia that I had previously repaired over the plate and I incised the fascia. A cloudy appearing fluid drained out. I took a culture of this fluid and then continued dissecting around the plate. I saw some more contaminated appearing tissue and cultured this. I then elevated off the fascia over the entire plate. I visualized the button over the plate for the coracoid fixation and this button lifted off easily with the entire coracoid suture. It is unclear exactly how this suture loosened up, but it appeared to have loosened in its entirety. I then turned my attention to removing the coracoid button from the underside of the coracoid. I elevated off the deltotrapezial fascia off the anterior clavicle. I elevated off the deltoid from the anterior clavicle in a standard fashion for exposure of the coracoid. I exposed the superior surface of the coracoid, visualize the CA ligament. I then dissected to either side medial and laterally of the coracoid with blunt dissection at all times to protect any vital structures at all times. There was more scarring here than in a normal coracoid exposure from the prior surgery. It was done under fluoroscopic visualization. I was able to push the button from the medial aspect over to the lateral aspect with a malleable type protractor, again pushing it over bluntly being on the underside of the coracoid. I then carefully again bluntly dissected and visualized the button and removed the button. I took an x-ray to confirm that it was removed. I then irrigated copiously over the coracoid. I then turned my attention to the debridement and then begin aggressively debriding. I first debrided all the tissue over the clavicle with a rongeur and then sent some of the soft tissue for culture. I then began debriding the nonunion site. This was an established nonunion. It was mobile. I debrided all the fibrous tissue from the nonunion site. I sent some bone and sent it off for culture. I then freshened up the fracture ends with a rongeur. I carefully debrided all soft tissue from the nonunion site and from the bone. I then used a bur to bur the ends of the fracture until I had fresh bleeding bone. I than began irrigating copiously with sterile saline , several liters of this. I then also irrigated with dilute Betadine over the clavicle. I then washed this away with more sterile saline several L. I then turned my attention to the revision at this point. After completion of the irrigation and debridement, the dirty instruments were set aside. We changed to new gloves and clean instruments were used. Then, I chose a Synthes hook plate to bypass the left screw hole of the prior Arthrex plate that I had removed. This was long enough that it was more medial than the last screw hole. I used a deeper hook. I placed it under the acromion in the standard fashion. Prior to doing so, I placed a 2.7 lag screw through the fracture site after reducing it and this actually had some nice compression and held the reduction nicely and then I countersunk it so I that I could put the plate over the aforementioned hook plate over the fracture site and this compressed it nicely again, held the reduction. I then placed a cortical screw at the most medial screw to hold the plate down at that aspect as it was popping up slightly. I then placed another cortical screw into the shaft to pull the plate down to the bone. I then placed a locking screw medially and 2 more locking screws into the distal piece. I assessed the reduction. I was happy with it. I then irrigated a little bit more and then during this time Vancomycin impregnated calcium sulfate beads were prepared on the back table. These cement beads were then placed over the nonunion site and over the plate. I carefully then repaired the fascia over these beads. Prior to doing so, I repaired the deltoid insertion in the clavicle with 0 PDS to the plate in the anterior clavicle. Then, I repaired the fascia with an 0 PDS over the plate. I then closed the wound in layers, last layer with nylon. A sterile dressing was applied. She tolerated the procedure well and was taken to PACU in stable condition. IMPLANTS: Synthes hook plate for distal clavicle fracture. INDICATIONS FOR PROCEDURE: This patient is a 67-year-old female who is well known to me. She underwent ORIF of her distal clavicle fracture about 3 months ago by me. I had been seeing her for followup in clinic. On her last follow up the patient was complaining of continued pain in the clavicle that was significant. She noticed a recurring red rash over the incision. X-rays showed no progression in healing, showing established nonunion. A CRP was drawn which was elevated. All these factors are pointing to a very likely infected nonunion. I discussed the case with several colleagues who are trauma and shoulder specialist. With evidence presented, they all felt that removal hardware and I and D is recommended. I discussed with her the options for the next step. We did discuss that removing all hardware and treatment of the infection with later return may hold a slightly higher chance of success removing the infection. However, this would be at the cost of significant pain and dysfunction to leaving the fracture unfixed which was causing her a lot of pain to begin with when she presented to me. I offered her the option of performing this essentially in 1 stage with hardware removal and aggressive I and D and then placement of antibiotic beads and a new plate to hopefully eliminate the infection and allow for union of the fracture. After our discussion, she wished to proceed with a method that would stabilize the fracture to prevent pain and dysfunction. We discussed risks and benefits. Risks include pain, bleeding, infection, damage to surrounding structures, stiffness, weakness, wound healing complications, need for further surgery including removal of hardware and revision, delayed union, nonunion. She understood these risks and she wished to proceed. POSTOPERATIVE CONDITION: Stable. POSTOPERATIVE PLAN: The patient will be admitted to my service. I have already spoken to an ID physician about the patient who will see the patient in the hospital and then coordinate care including IV antibiotics. We will await culture results. She will also be admitted for pain control as this was an issue at her last surgery. /[id number]/MODL MTDD
--- NOTE | 2018-08-24 08:00 | PCMIDPN ---
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 Initial injury had "tinting" of the skin but was not open. Strongly suspect P acnes. Patient still with a high degree of pain. Labs show mild anemia and elevated CRP which can be expected with infection. --will continue to follow cultures --discharge okay from ID perspective will plan empiric ceftriaxone 2 g IV daily which will cover strep, P acnes --challenges regarding discharge for plans of IV antibiotics due to high cost of home iV and difficult w transport and like not candidate for SNF --interagency was completed # Irregular heart beat noted on exam yesterday: EKG normal meds Ceftriaxone 2gm IV daily Micro 08/22 OR cx: multiple cx with negative gram stain: Cx is pending Subjective: Patient states that she has significant pain at the surgical site still. This is improved since her pain medicines work increased last night. No GI symptoms or rash Objective: Vital Signs Temp Pulse Resp BP Pulse Ox 36.6 C 73 16 137/77 H 97 08/24/18 04:00 08/24/18 04:00 08/24/18 04:00 08/24/18 04:00 08/24/18 04:00 Microbiology 08/22/18 16:10 Gram Stain - Final Chest - Eswab 08/22/18 16:10 Gram Stain - Final Chest - Eswab 08/22/18 16:18 Gram Stain - Final Chest - Tissue 08/22/18 17:34 Gram Stain - Final Chest - Bone 08/22/18 16:18 Mycobacterial Smear (BRANDON) - Final Chest - Tissue 08/22/18 17:34 Mycobacterial Smear (BRANDON) - Final Chest - Bone Laboratory Results 08/24/18 08/24/18 02:25 08:20 WBC 7.24 Hct 31.0 L Plt Count 159 Creatinine 0.7 AST 12 L ALT 31 C-Reactive Protein 27.7 H 08/23/18 08/24/18 08/25/18 05:59 05:59 05:59 Intake Total 1445 1850 Output Total 350 300 Balance 1095 1550 - Physical Exam General Appearance: alert, no apparent distress Respiratory: lungs clear, No accessory muscle use Neck: supple Cardiac/Chest: regular rate, rhythm, No systolic murmur Extremities: other (Dressing in place left upper chest), No swelling Skin: No rash Neuro/Psych: alert, normal mood/affect, oriented x 3 - Line/s RUE PICC Lines: No drainage, No erythema - Time Spent With Patient Time Spent with Patient: greater than 35 minutes (Care coordinated with nursing and orthopedist) Time Spent with Patient: Greater than 35 minutes spent on this patients care, greater than 50% of time spent counseling, educating, and coordinating care regarding the above mentioned plan. ICD10 Worksheet Patient Problems: Problems Problem Status Onset Nonunion of clavicle fracture Acute
--- NOTE | 2018-08-24 08:28 | SOAPPROG ---
SOAP Progress Note Assessment/Plan: Assessment:POD#2 s/p L clavicle HWR, I&D, and revision ORIF for presumed infected nonunion -gram stain of fluid showing 2+ PMN's -block wore off, strength returned -the cost of the antibiotic treatment is a significant concern for her. She also has transportation issues. I will speak to the CM regarding options Plan: -IV Ceftriaxone per ID recs -appreciate ID consult -PICC line placed last night -d/c planning pending culture results, pain control -pain ctrl -PT/OT Subjective: Pain better controlled on 15mg Oxy Q4hr. PICC placed yesterday Objective: Vital Signs Temp Pulse Resp BP Pulse Ox 36.6 C 73 16 137/77 H 97 08/24/18 04:00 08/24/18 04:00 08/24/18 04:00 08/24/18 04:00 08/24/18 04:00 Microbiology 08/22/18 16:10 Gram Stain - Final Chest - Eswab 08/22/18 16:10 Gram Stain - Final Chest - Eswab 08/22/18 16:18 Gram Stain - Final Chest - Tissue 08/22/18 17:34 Gram Stain - Final Chest - Bone 08/22/18 16:18 Mycobacterial Smear (BRANDON) - Final Chest - Tissue 08/22/18 17:34 Mycobacterial Smear (BRANDON) - Final Chest - Bone Laboratory Results 08/24/18 02:25 08/23/18 08/24/18 08/25/18 05:59 05:59 05:59 Intake Total 1445 1850 Output Total 350 300 Balance 1095 1550 Cultures = no growth to date L shoulder -dressing changed, incision mostly dry apart from small area of clear drainage. 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 Moves all fingers. SILT - Time Spent With Patient Time Spent With Patient: 30 m ICD10 Worksheet Patient Problems: Problems Problem Status Onset Nonunion of clavicle fracture Acute - ICD10 Problem Qualifiers (1) Nonunion of clavicle fracture Qualifiers: Clavicle location: lateral end Fracture type: closed Fracture alignment: displaced Laterality: left Qualified Code(s): S42.032K - Displaced fracture of lateral end of left clavicle, subsequent encounter for fracture with nonunion
[2018-08-24] MEDS: CHOLECALCIFEROL VIT D3 1,000 UNITS TAB PO SCH (09:29)
[2018-08-24] MEDS: buPROPion SR 150 MG TAB PO SCH ×2 (09:29→20:01)
--- NOTE | 2018-08-24 10:27 | CPEKG ---
Test Reason : OPEN Blood Pressure : / mmHG Vent. Rate : 067 BPM Atrial Rate : 066 BPM P-R Int : 122 ms QRS Dur : 088 ms QT Int : 399 ms P-R-T Axes : 040 053 049 degrees QTc Int : 422 ms Sinus rhythm Abnormal R-wave progression, early transition Confirmed by Torin Torrez ([id number]) on 08/24/2018 10:27:18 AM Referred By: Roger Wallis Confirmed By:Torin Torrez
--- NOTE | 2018-08-24 17:00 | ASMTCMCOM ---
CM Note CM Note Notes: This morning pt believed to have home IV antibiotics it would cost her $11k. Cristine with [employer] sat bedside with pt and went over insurance, informing pt the cost is closer to $3K. Pt decides she wants to d/c home with [facility] and [facility] can accept for RN. Pt informed she is likely medically stabel to d/c tomorrow, pt initially states she has no transport home tomorrow but then states her friend Emani can pick her up when she gets off work at 1800. MD Wallis updated. D/c plan of care: Home with [facility] and [facility] RN Date Signed: 08/24/2018 04:59 PM Electronically Signed By:KAYDEN Mcguire
[2018-08-24] MEDS: SERTRALINE HCL 50 MG TAB PO SCH (20:01)
[2018-08-25] MEDS: oxyCODONE IR 15 MG TAB PO PRN ×5 (00:09→16:32)
[2018-08-25] MEDS: ACETAMINOPHEN 500 MG TAB PO SCH ×2 (06:31→16:33)
[2018-08-25] MEDS: buPROPion SR 150 MG TAB PO SCH (08:12)
[2018-08-25] MEDS: CHOLECALCIFEROL VIT D3 1,000 UNITS TAB PO SCH (08:12)
--- NOTE | 2018-08-25 13:38 | ASMTLACE ---
JERODE Length of stay for Answers: 4-6 days current admission Acuity / Level of Answers: Yes Care: Did the patient have an inpatient admission? Comorbidities - select Answers: Opioid dependence all that apply / Chronic pain Other Notes: HLD # of Emergency department Answers: 0 visits in the last 6 months Social determinants Answers: Mental health diagnosis (anxiety, depression, pers onality disorders, etc.) Score: 15 Date Signed: 08/25/2018 01:35 PM Electronically Signed By:KAYDEN Mcguire
--- NOTE | 2018-08-25 13:42 | ASMTCMCOM ---
CM Note CM Note Notes: Pt medically stable for d/c with [facility] RN and [facility]. Cristine with [facility] and Keri at [facility] were notified. [facility] and [facility] to obtain orders via [employer]. Pt has a friend to transport this evening. Voicemail left for [employer] to contact pt. Date Signed: 08/25/2018 01:39 PM Electronically Signed By:KAYDEN Mcguire
--- NOTE | 2018-08-25 15:01 | SOAPPROG ---
SOAP Progress Note Assessment/Plan: Assessment:POD#3 s/p L clavicle HWR, I&D, and revision ORIF for presumed infected nonunion -gram stain of fluid showing 2+ PMN's -home health RN and antibiotics arranged Plan: -IV Ceftriaxone per ID recs -appreciate ID consult -pain ctrl -PT/OT -plan d/c today Subjective: Doing well this afternoon. Pain ctrl'd with current regimen Objective: Vital Signs Temp Pulse Resp BP Pulse Ox 37.1 C 68 16 149/78 H 88 L 08/25/18 07:46 08/25/18 07:46 08/25/18 07:46 08/25/18 07:46 08/25/18 07:46 Microbiology 08/22/18 17:34 Gram Stain - Final Chest - Bone 08/22/18 16:18 Gram Stain - Final Chest - Tissue 08/22/18 16:10 Gram Stain - Final Chest - Eswab 08/22/18 16:10 Gram Stain - Final Chest - Eswab Laboratory Results 08/24/18 02:25 08/24/18 08:20 08/24/18 08/25/18 08/26/18 05:59 05:59 05:59 Intake Total 1850 1950 Output Total 300 400 Balance 1550 1550 LUE -dressing c/d/i -NV intact distally, 5/5 - Time Spent With Patient Time Spent With Patient: 20 m - Pending Discharge Pending Discharge Within 24 Hours: Yes Pending Discharge Date: 08/26/18 Pending Discharge Time: 11:00 ICD10 Worksheet Patient Problems: Problems Problem Status Onset Nonunion of clavicle fracture Acute - ICD10 Problem Qualifiers (1) Nonunion of clavicle fracture Qualifiers: Clavicle location: lateral end Fracture type: closed Fracture alignment: displaced Laterality: left Qualified Code(s): S42.032K - Displaced fracture of lateral end of left clavicle, subsequent encounter for fracture with nonunion
[2018-08-25 15:10] VITALS: BP 129/65
--- NOTE | 2018-08-25 20:20 | GDS ---
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 OPERATIONS PERFORMED DURING HOSPITALIZATION: Left clavicle hardware removal, incision and drainage, and revision open reduction and internal fixation. HOSPITAL COURSE: Cindy was admitted after her surgery, on TuesdayAugust 22. Her hospital course has been uneventful. She was admitted for IV pain control and workup by the ID Service for treatment of this infected nonunion. During her hospitalization, her vitals were stable. Her pain was controlle d with p.o. pain regimen by today's date. She worked with PT and OT. She received a PICC line, which was ordered by the ID Service. Dr. Gaines with ID was consulting, and developed a plan. Home healt h RN was arranged. She is to be discharged on daily IV ceftriaxone. Her cultures were negative to d ate during her hospitalization; however, all evidence points to a likely infected nonunion, and likel y infection in the shoulder may not grow cultures for at least 2 weeks. By , jie was deemed stable for discharge home. /[id number]/MODL
--- NOTE | 2018-08-26 10:10 | ASDISCHSUM ---
Discharge Information Plan Status:IV ABX/Infusion Medically Cleared to Leave: Discharge Date:08/25/2018 07:15 PM D/C Disposition: ADT D/C Disposition:Home, Routine, Self-Care Projected Discharge Date:08/25/2018 11:00 AM Transportation at D/C: Discharge Delay Reason: Follow-Up Date:08/25/2018 11:00 AM Discharge Slot: Final Diagnosis: Placement Information Referral Type:Home Infusion Referral ID:[id number] Provider Name:[facility] Address 1[address]: City:[place] Selection Factors: State:[place] Referral Type:*Home Health Care Services Referral ID:[id number] Provider Name:[facility] Address [address] 2: City:[place] Selection Factors: State:[place] Patient Contact Information Contact Name:Cesar Relationship:Son Address: Work Phone: City: [facility] Phone: [facility] Code: Email: Financial Information Financial Class:Medicare Primary Plan Desc:MEDICARE INPATIENT Primary Plan Number:[id number] Secondary Plan Desc:[facility] RO[facility] Secondary Plan Number:[id number] Assessment Information LACE LACE Length of stay for Answers: 4-6 days current admission Acuity / Level of Answers: Yes Care: Did the patient have an inpatient admission? Comorbidities - select Answers: Opioid dependence all that apply / Chronic pain Other Notes: HLD # of Emergency department Answers: 0 visits in the last 6 months Social determinants Answers: Mental health diagnosis (anxiety, depression, pers onality disorders, etc.) Score: 15 Date Signed: 08/25/2018 01:35 PM Electronically Signed By:KAYDEN Mcguire [facility] Progress Note CM Note CM Note Notes: Pt had clavicle revision, debridement and hardware removal. Pt resides alone. OT rec home, PT rec home/outpatient. ID to consult and cultures pending. Pt currently on IV ceftriaxone. CM to follow. D/c plan: Dependent on ID recs Date Signed: 08/23/2018 11:54 AM Electronically Signed By:KAYDEN Mcguire [facility] CM Progress Note CM Note CM Note Notes: Pt will need to d/c on IV antibiotics, referral sent to [facility] they ran benefits for 2gm ceftriaxone daily. Pt responsibility is approx $517/week for six weeks. Pt reports she does not have daily transportation to get to an infusion center. Pt is upset the bello for home IV antibiotics is so costly and reports she likely will pay for it because she is in so much pain and wants to/needs to be home. Pt is provided senior blue book for transportation resources, she reports they are all "a hassle." Pt states she gets to medical appointments now with rides from friends and does not have anyone to help on a daily basis. Cristine with [employer] will visit with pt tomorrow and pt looks forward to more information from [place] about insurance coverage. Pt is provided a print out of the expected cost for home IV antibiotics. Pt is dealing with chronic pain and verbalizes being frustrated/stressed with months of ongoing medical issues. Pt reports she has a limited support system. Pt interested in [employer] referral. CM to follow. D/c plan of care: Home IV antibiotics most likely Date Signed: 08/23/2018 04:59 PM Electronically Signed By:KAYDEN Mcguire [facility] CM Progress Note CM Note CM Note Notes: This morning pt believed to have home IV antibiotics it would cost her $11k. Cristine with [employer] sat bedside with pt and went over insurance, informing pt the cost is closer to $3K. Pt decides she wants to d/c home with [employer] and [facility] can accept for RN. Pt informed she is likely medically stabel to d/c tomorrow, pt initially states she has no transport home tomorrow but then states her friend Emani can pick her up when she gets off work at 1800. MD Wallis updated. D/c plan of care: Home with [employer] and [facility] RN Date Signed: 08/24/2018 04:59 PM Electronically Signed By:KAYDEN Mcguire [facility] CM Progress Note CM Note CM Note Notes: Pt medically stable for d/c with [facility] RN and [facility]. Cristine with [employer] and Keri at [facility] were notified. Orders sent to [employer] and [facility] to obtain orders via [employer]. Pt has a friend to transport this evening. Voicemail left for [employer] to contact pt. Date Signed: 08/25/2018 01:39 PM Electronically Signed By:KAYDEN Mcguire Intervention Information Intervention Type:*IM-Signed Date of Service:08/25/2018 10:01 AM Patient Type:Inpatient Staff Member:Rosemarie Zamorano Hours: Discipline: Severity: Comment:
== END 2018-08-25 19:15 | disposition home health service (06) | DRG 857 ==
LOC: F1N 13:28 → F3N 15:54
PROVIDERS: ADMIT Orthopaedic Surgery Hand Surgery; ATTEND Orthopaedic Surgery Hand Surgery
PROC: 0PPB04Z Removal of Internal Fixation Device from Left Clavicle, Open Approach (ICD-10-PCS; principal; 2018-08-22 14:45)
PROC: 0PSB04Z Reposition Left Clavicle with Internal Fixation Device, Open Approach (ICD-10-PCS; principal; 2018-08-22 14:45)
PROC: 02H633Z Insertion of Infusion Device into Right Atrium, Percutaneous Approach (ICD-10-PCS; 2018-08-23)
DX: T81.43XA Infection following a procedure, organ and space surgical site, initial encounter (principal); M86.112 Other acute osteomyelitis, left shoulder; S42.032K Displaced fracture of lateral end of left clavicle, subsequent encounter for fracture with nonunion; Z97.8 Presence of other specified devices; E78.5 Hyperlipidemia, unspecified; F41.0 Panic disorder [episodic paroxysmal anxiety]; G47.00 Insomnia, unspecified; Z87.891 Personal history of nicotine dependence; W19.XXXA Unspecified fall, initial encounter; Y92.015 Private garage of single-family (private) house as the place of occurrence of the external cause
CPT/HCPCS: 97161-GP; 97165-GO; 97530-GO; 97535-GO; C1713; C1751; J0690; J0696; J1100; J2405; J2704; J2795; J3010; J3370

== ENCOUNTER → 2018-09-06 | Outpatient (CLI) | payer OTHER | LOC: BMCIMAGING 13:15 | PROVIDERS: ATTEND Orthopaedic Surgery Hand Surgery | DX: Z09 Encounter for follow-up examination after completed treatment for conditions other than malignant neoplasm (principal); S42.002D Fracture of unspecified part of left clavicle, subsequent encounter for fracture with routine healing ==

== ENCOUNTER → 2018-09-29 | Outpatient (CLI) | payer OTHER | LOC: BMCLAB 13:30 ==